=== PATIENT | female | born 1965 | race American Indian/Alaskan Native ===

== ENCOUNTER 2017-07-07 11:56 | Outpatient (CLI) | payer BC ==
--- NOTE | 2017-07-07 13:51 | Mammography Report ---
BILATERAL MAMMOGRAM with CAD: HISTORY: Cancer screening. Comparison study is dated June 28, 2016. FINDINGS: The breast tissue is heterogeneously dense, which could obscure detection of small masses (approximately 50%-75% glandular). No mass, distortion, suspicious calcification, or skin change is seen. IMPRESSION: Negative mammogram. There is no mammographic evidence of malignancy. RECOMMENDATION: Follow-up per ACS guidelines. BI-RADS CATEGORY: 1 = Negative ACR BI-RADS MAMMOGRAPHIC CODES: 0 = Needs additional imaging evaluation; 1 = Negative; 2 = Benign; 3 = Probably benign; 4 = Suspicious; 5 = Malignant; 6 = Known biopsy-proven malignancy COMMENT: 1. Dense breast tissue, i.e., adenosis, fibrocystic changes, etc., may obscure an underlying neoplasm. 2. Approximately 10% of cancers are not detected with mammography. 3. A negative mammography report should not delay biopsy if a clinically suspicious mass is present. COMMENT: Patient follow-up letters are generated in [facility].
== END 2017-07-07 11:57 | disposition home or self-care (01) ==
LOC: MAMMO 11:56
PROVIDERS: ATTEND Internal Medicine
DX: Z12.31 Encounter for screening mammogram for malignant neoplasm of breast (principal)
CPT/HCPCS: 77067; G0202

== ENCOUNTER 2018-01-02 19:30 | Emergency (ER) | payer BC ==
[2018-01-02 19:39] VITALS: BP 151/83
[2018-01-02] MEDS ORDERED: TORADOL IV ONE (20:28)
[2018-01-02] MEDS ORDERED: BENADRYL IV ONE (20:28)
[2018-01-02] MEDS ORDERED: REGLAN IV ONE (20:28)
--- NOTE | 2018-01-02 20:49 | Emergency Department Report ---
ED Headache HPI - General Chief Complaint: Neuro Symptoms/Deficit Stated Complaint: HEAD PAIN,RT SIDE NUMBNESS Time Seen by Provider: 01/02/18 20:06 Source: patient Exam Limitations: no limitations - History of Present Illness Initial Comments: 52-year-old female with no significant past medical history presents to the hospital complaining of right sided headache in the right arm paresthesia radiating to her entire hand since waking up this morning. Symptoms are constant. Headache described as throbbing and aching. Pain going down right- sided neck and trapezius worse with movement and palpation. Pain overall status 6/10 intensity. Positive nausea without vomiting, blurry vision, or focal weakness. Patient is right hand dominant denies any heavy lifting or trauma. Also denies history of migraines and hypertension. Patient states she has a cyst on her thyroid. Allergies/Adverse Reactions: Allergies shellfish derived Allergy (Severe, Verified 01/02/18 21:53) HIVES,FACIAL SWELLING Home Medications: Ambulatory Orders Ibuprofen [Motrin] 800 mg PO Q8HR PRN #30 tablet 01/02/18 Metaxalone [Skelaxin] 800 mg PO TID PRN #30 tablet 01/02/18 traMADol [Ultram 50 MG tab] 50 mg PO Q6HR PRN #20 tablet 01/02/18 ED Review of Systems ROS: Stated complaint: HEAD PAIN,RT SIDE NUMBNESS Other details as noted in HPI Comment: All other systems reviewed and negative ED Past Medical Hx - Past Medical History Hx Hypertension: No Hx CVA: No Hx Diabetes: No Hx Renal Disease: No Hx Arthritis: No Hx Headaches / Migraines: Yes Hx Seizures: No Hx Asthma: No Hx HIV: No - Surgical History Hx Pacemaker: No - Social History Smoking Status: Never Smoker Substance Use Type: None - Medications Home Medications: Home Medications Medication Instructions Recorded Confirmed Last Taken Type Ibuprofen [Motrin] 800 mg PO Q8HR PRN #30 tablet 01/02/18 Unknown Rx Metaxalone [Skelaxin] 800 mg PO TID PRN #30 tablet 01/02/18 Unknown Rx traMADol [Ultram 50 MG tab] 50 mg PO Q6HR PRN #20 tablet 01/02/18 Unknown Rx ED Physical Exam - General Limitations: No Limitations - Other Other exam information: General: No limitations, patient is alert in no acute distress Head exam: Atraumatic, normocephalic Eyes exam: Normal appearance, pupils equal reactive to light, extraocular movements intact ENT: Moist mucous membrane, normal oropharynx Neck exam: Normal inspection, full range of motion, no meningismus nontender Respiratory exam: Clear to auscultation bilateral, no wheezes, rales, crackles Cardiovascular: Normal rate and rhythm, normal heart sounds Abdomen: Soft, nondistended, and nontender, with normal bowel sounds, no rebound, or guarding Extremity: Full range of motion normal inspection no deformity Back: Normal Inspection, full range of motion, no tenderness Neurologic: Alert, oriented x3, cranial nerves intact, no motor or sensory deficit Psychiatric: normal affect, normal mood Skin: Warm, dry, intact ED Course Vital Signs 01/02/18 01/02/18 19:34 21:13 Temperature 98 F Pulse Rate 66 Respiratory 16 18 Rate Blood Pressure 151/83 O2 Sat by Pulse 98 Oximetry - Reevaluation(s) Reevaluation #1: 01/02/18 22:47 patient received Reglan, Benadryl, and Toradol with improvement in pain - Consultations Consultation #1: 01/02/18 22:47 case discussed with on-call orthopedic surgeon Dr. Lemus who agrees to have follow-up is appropriate given the CT findings ED Medical Decision Making - Lab Data Result diagrams: 01/02/18 20:38 01/02/18 20:38 Lab Results 01/02/18 01/02/18 01/02/18 Range/Units 20:38 20:38 20:38 WBC 4.8 (4.5-11.0) K/mm3 RBC 3.90 (3.65-5.03) M/mm3 Hgb 11.7 (10.1-14.3) gm/dl Hct 33.9 (30.3-42.9) % MCV 87 (79-97) fl MCH 30 (28-32) pg MCHC 35 H (30-34) % RDW 13.4 (13.2-15.2) % Plt Count 319 (140-440) K/mm3 Lymph % (Auto) 38.9 H (13.4-35.0) % [place] % (Auto) 5.0 (0.0-7.3) % Eos % (Auto) 2.5 (0.0-4.3) % Baso % (Auto) 0.8 (0.0-1.8) % Lymph # 1.9 (1.2-5.4) K/mm3 [place] # 0.2 (0.0-0.8) K/mm3 Eos # 0.1 (0.0-0.4) K/mm3 Baso # 0.0 (0.0-0.1) K/mm3 Seg Neutrophils % 52.8 (40.0-70.0) % Seg Neutrophils # 2.5 (1.8-7.7) K/mm3 Sodium 138 (137-145) mmol/L Potassium 4.4 (3.6-5.0) mmol/L Chloride 100.2 (98-107) mmol/L Carbon Dioxide 27 (22-30) mmol/L Anion Gap 15 mmol/L BUN 14 (7-17) mg/dL Creatinine 0.8 (0.7-1.2) mg/dL Estimated GFR > 60 ml/min BUN/Creatinine Ratio 18 % Glucose 103 H (65-100) mg/dL Calcium 9.2 (8.4-10.2) mg/dL Magnesium 2.00 (1.7-2.3) mg/dL TSH 3.940 (0.270-4.200) mlU/mL Free T4 1.00 (0.76-1.46) ng/dL - Radiology Data Radiology results: report reviewed read by radiology ct heaed: naf ct cervical spine FINDINGS: There is loss of cervical lordosis. Vertebral height is within normal limits. An acute fracture is not identified. Visualized lung apices are clear. Thyroid demonstrates normal density. Dsib-yh-jimzvvzs degree anterior osteophyte formation is noted from C3-4-C6-7. C1-2: No significant abnormality. C2-3: No significant abnormality. C3-4: No significant abnormality. C4-5: Mild degree right paracentral disc herniation is identified measuring about 0.8 x 0.4 centimeters in transverse and AP dimensions resulting in mild compromise of the spinal canal.. C5-6: Mild degree left neural foraminal stenosis is noted secondary to uncovertebral degenerative changes. There is mild degree broad-based disc osteophyte complex without significant spinal canal compromise.. C6-7: Mild degree broad-based disc osteophyte complex and bilateral uncovertebral degenerative changes are noted without significant spinal canal or neural foraminal compromise.. C7-T1: No significant abnormality. Other: No additional findings. IMPRESSION: Multilevel cervical spondylosis as described above Mild degree right paracentral disc herniation at C4-5. MRI is recommended. No acute fracture. - Medical Decision Making Patient had relief in the ED with medications. Patient's symptoms suggestive of radiculopathy with muscle spasm. CT cervical spine shows degenerative disc disease with mild herniation. Case discussed with neurology. Patient may follow up as an outpatient. - Differential Diagnosis radiculopathy, herniated disc, CVA, migraine Critical Care Time: No Critical care attestation.: If time is entered above; I have spent that time in minutes in the direct care of this critically ill patient, excluding procedure time. ED Disposition Clinical Impression: Radicular pain in right arm, Degenerative cervical disc, Cervical disc herniation, Headache Disposition: TO HOME OR SELFCARE Is pt being admited?: No Does the pt Need Aspirin: No Condition: Stable Instructions: Cervical Disc Herniation (ED), Cervical Radiculopathy (ED), Acute Headache (ED) Additional Instructions: Follow-up with the neurologist as orthopedic surgery provided for further management and treatment. You will need an outpatient MRI of your cervical spine /neck for further evaluation. Please return if symptoms worsen as indicated by your discharge instructions. Please note that Skelaxin and tramadol drowsiness therefore do not operate heavy machinery or drive while taking this medication Prescriptions: Ibuprofen [Motrin] 800 mg PO Q8HR PRN #30 tablet PRN Reason: Pain Metaxalone [Skelaxin] 800 mg PO TID PRN #30 tablet PRN Reason: Muscle Spasm traMADol [Ultram 50 MG tab] 50 mg PO Q6HR PRN #20 tablet PRN Reason: Pain Referrals: RODRIGO LEMUS MD [Staff Physician] - 3-5 Days (orthopedics) FAVIOLA GONZALEZ MD [Staff Physician] - 3-5 Days (Neurology) EFREN THOMAS MD [Primary Care Provider] - 3-5 Days MERLINE HYMAN MD [Staff Physician] - 3-5 Days (primary care doctor) Time of Disposition: 22:54 - Assessment Assessment Interval: Baseline - Level of Consciousness 1a. Level of Consciousness: alert - LOC Questions 1b. LOC Questions: answers correctly - LOC Command 1c. LOC Commands: performs no tasks correctly - Best Gaze 2. Best Gaze: normal - Visual 3. Visual: no visual loss - Facial Palsy 4. Facial Palsy: normal symmetrical movement - Motor Arm 5b. Motor Arm Right: no drift 5a. Motor Arm Left: no drift - Motor Leg 6a. Motor Leg Left: no drift 6b. Motor Leg Right: no drift - Limb Ataxia 7. Limb Ataxia: absent - Sensory 8. Sensory: mild/moderate sensory loss (left arm paresthesias but sensation intact) - Best Language 9. Best Language: no aphasia - Dysarthria 10. Dysarthria: normal - Extinction and Inattention 11. Extinction/Inattention: no abnormality - Scoring Total Score: 3 Stroke Severity: Minor Stroke
[2018-01-02 20:52] LABS: Basophils % (Auto) 0.8 % (0.0-1.8); Eosinophils # (Auto) 0.1 K/mm3 (0.0-0.4); Eosinophils % (Auto) 2.5 % (0.0-4.3); Hematocrit 33.9 % (30.3-42.9); Hemoglobin 11.7 gm/dl (10.1-14.3); Lymphocytes # (Auto) 1.9 K/mm3 (1.2-5.4); Lymphocytes % (Auto) 38.9 % (13.4-35.0); Mean Corpuscular HGB Conc 35 % (30-34); Mean Corpuscular Hemoglobin 30 pg (28-32); Mean Corpuscular Volume 87 fl (79-97); Monocytes # (Auto) 0.2 K/mm3 (0.0-0.8); Platelet Count 319 K/mm3 (140-440); Red Cell Distribution Width 13.4 % (13.2-15.2)
[2018-01-02 21:10] LABS: BUN/Creatinine Ratio 18; Blood Urea Nitrogen 14 mg/dL (7-17); Calcium 9.2 mg/dL (8.4-10.2); Hemolysis Index 160
--- NOTE | 2018-01-02 22:08 | Cat Scan Report ---
FINAL REPORT PROCEDURE: CT HEAD/BRAIN WO CON TECHNIQUE: Computerized tomography of the head was performed without contrast material. HISTORY: RIGHT BURNETT, R ARM PARESTHESIAS COMPARISON: No prior studies are available for comparison. FINDINGS: Skull and scalp: Normal. Paranasal sinuses: Normal. Ventricles and subarachnoid spaces: Normal. Cerebrum: No evidence of hemorrhage, acute infarction or mass . Cerebellum and brainstem: No evidence of hemorrhage, acute infarction or mass. Vasculature: Normal. Comments: None. IMPRESSION: Normal Examination
--- NOTE | 2018-01-02 22:23 | Cat Scan Report ---
FINAL REPORT PROCEDURE: CT CERVICAL SPINE WO CON TECHNIQUE: Computerized tomography of the cervical spine was performed from the skull base to T1 without contrast material. HISTORY: RIGHT BURNETT, R ARM PARESTHESIAS COMPARISON: No prior studies are available for comparison. FINDINGS: There is loss of cervical lordosis. Vertebral height is within normal limits. An acute fracture is not identified. Visualized lung apices are clear. Thyroid demonstrates normal density. Hhjg-ju-ifdxqqgo degree anterior osteophyte formation is noted from C3-4-C6-7. C1-2: No significant abnormality. C2-3: No significant abnormality. C3-4: No significant abnormality. C4-5: Mild degree right paracentral disc herniation is identified measuring about 0.8 x 0.4 centimeters in transverse and AP dimensions resulting in mild compromise of the spinal canal.. C5-6: Mild degree left neural foraminal stenosis is noted secondary to uncovertebral degenerative changes. There is mild degree broad-based disc osteophyte complex without significant spinal canal compromise.. C6-7: Mild degree broad-based disc osteophyte complex and bilateral uncovertebral degenerative changes are noted without significant spinal canal or neural foraminal compromise.. C7-T1: No significant abnormality. Other: No additional findings. IMPRESSION: Multilevel cervical spondylosis as described above Mild degree right paracentral disc herniation at C4-5. MRI is recommended. No acute fracture.
== END 2018-01-02 23:18 | disposition home or self-care (01) ==
LOC: ED 19:30
DX: M50.221 Other cervical disc displacement at C4-C5 level (principal); M79.601 Pain in right arm; G43.909 Migraine, unspecified, not intractable, without status migrainosus; E04.1 Nontoxic single thyroid nodule; Z91.013 Allergy to seafood
CPT/HCPCS: 36415; 70450; 72125; 80048; 83735; 84439; 84443; 85025; 96374; 96375; 99284; J1200; J1885; J2765

== ENCOUNTER 2018-01-28 17:07 | Outpatient (CLI) | payer BC ==
--- NOTE | 2018-01-28 23:00 | XRay Report ---
FINAL REPORT PROCEDURE: XR SPINE CERVICAL 4-5V TECHNIQUE: Cervical spine radiographs, minimum of four views, including AP, lateral, both oblique, and open-mouth odontoid projections. HISTORY: Radiculopathy COMPARISON: No prior studies are available for comparison. FINDINGS: Prevertebral soft tissues: Normal. Alignment: There is straightening of cervical spine. Motion: Physiologic Vertebral body heights/Disk spaces: Narrowing of intervertebral disc space is noted from C3-4 to C6-7. Mild degree posterior osteophyte formation is noted at C5-6. Fracture(s): None. Neural foramina: Normal. Facets: Normal. Bone mineralization: Normal. IMPRESSION: Multilevel cervical spondylosis most marked at C5-6. Straightening of the cervical spine is most likely secondary to spasm.
== END 2018-01-28 17:08 | disposition home or self-care (01) ==
LOC: XRAY 17:07
PROVIDERS: ATTEND Orthopaedic Surgery
DX: M54.12 Radiculopathy, cervical region (principal); M25.78 Osteophyte, vertebrae
CPT/HCPCS: 72050

== ENCOUNTER 2018-03-10 16:44 | Outpatient (CLI) | payer BC ==
--- NOTE | 2018-03-11 00:36 | Ultrasound Report ---
FINAL REPORT EXAM: US TRANSVAGINAL HISTORY: PELVIC PAIN TECHNIQUE: Transvaginal imaging was obtained of the pelvis. FINDINGS: The uterus has been removed. The left ovary is normal size contour and echotexture measuring 1.6 cm x 1.6 cm x 1.7 cm. The right ovary measures 2.6 cm x 1.7 cm x 2.8 cm. There are 2 small functional cyst the right ovary the larger measuring to 2 cm in diameter. Free fluid is not seen. IMPRESSION: Hysterectomy. Small functional cysts in the right ovary measuring up to 2 cm in diameter. No evidence of free fluid or adnexal masses.
--- NOTE | 2018-03-11 00:37 | Ultrasound Report ---
FINAL REPORT EXAM: US PELVIC COMPLETE HISTORY: PELVIC PAIN TECHNIQUE: Transabdominal imaging was obtained of the pelvis. FINDINGS: The uterus has been removed. The left ovary is normal size contour and echotexture measuring 1.6 cm x 1.6 cm x 1.7 cm. The right ovary measures 2.6 cm x 1.7 cm x 2.8 cm. Within the right ovary are 2 functional cysts the larger measuring up to 2 cm in diameter. Free fluid is not seen. IMPRESSION: Hysterectomy. Small functional cysst in the right ovary measuring up to 2 cm in diameter. No evidence of free fluid or adnexal masses.
== END 2018-03-10 16:45 | disposition home or self-care (01) ==
LOC: US 16:44
PROVIDERS: ATTEND Internal Medicine
DX: N83.201 Unspecified ovarian cyst, right side (principal); E03.9 Hypothyroidism, unspecified; Z90.710 Acquired absence of both cervix and uterus; M19.90 Unspecified osteoarthritis, unspecified site
CPT/HCPCS: 76830; 76856

== ENCOUNTER 2018-03-17 16:43 | Outpatient (CLI) | payer BC | END 2018-03-17 16:44 | disposition home or self-care (01) | LOC: LAB 16:43 | PROVIDERS: ATTEND Internal Medicine | DX: R79.89 Other specified abnormal findings of blood chemistry (principal); E03.9 Hypothyroidism, unspecified; M19.90 Unspecified osteoarthritis, unspecified site; Z91.013 Allergy to seafood; Z90.710 Acquired absence of both cervix and uterus | CPT/HCPCS: 36415; 84439; 84481 ==

== ENCOUNTER 2018-11-13 10:27 | Outpatient (CLI) | payer BC ==
--- NOTE | 2018-11-15 02:05 | Vascular Lab Report ---
PROCEDURE: VL VENOUS DUPLEX LE BILAT TECHNIQUE: Ultrasound evaluation of the deep venous structures of the lower entities including varic ose veins HISTORY: VARICOSE VEINS OF BILAT LOWER EXTREMITIES COMPARISONS: None FINDINGS: There is no evidence of deep venous or superficial venous thrombus in the lower extremities. During t he examination there is deep venous reflux noted in the right and left common femoral veins and popli teal veins. There is superficial venous reflux noted in the right superficial femoral vein and greate r saphenous vein. There is reflux identified in the left superficial femoral vein. No reflux noted in the left anterior ankle region or in the posterior thigh region where the patient has symptomatology. IMPRESSION: There is no evidence of deep venous or superficial venous thrombus in the lower extremities. Evaluati on for reflux and varicosity as discussed. This document is electronically signed by Ericka Mckinney DO., November 15 2018 02:03:27 AM ET
== END 2018-11-13 10:28 | disposition home or self-care (01) ==
LOC: VAS 10:27
PROVIDERS: ATTEND Surgery Vascular Surgery
DX: I83.813 Varicose veins of bilateral lower extremities with pain (principal); E03.9 Hypothyroidism, unspecified; M19.90 Unspecified osteoarthritis, unspecified site; Z90.710 Acquired absence of both cervix and uterus
CPT/HCPCS: 93970

== ENCOUNTER 2019-03-02 10:03 | Outpatient (CLI) | payer BC ==
[2019-03-02 10:39] LABS: Basophils % (Auto) 1.1 % (0.0-1.8); Eosinophils # (Auto) 0.1 K/mm3 (0.0-0.4); Eosinophils % (Auto) 1.4 % (0.0-4.3); Hematocrit 34.1 % (30.3-42.9); Hemoglobin 11.5 gm/dl (10.1-14.3); Lymphocytes # (Auto) 1.3 K/mm3 (1.2-5.4); Lymphocytes % (Auto) 36.1 % (13.4-35.0); Mean Corpuscular HGB Conc 34 % (30-34); Mean Corpuscular Volume 89 fl (79-97); Monocytes # (Auto) 0.2 K/mm3 (0.0-0.8); Monocytes % (Auto) 5.8 % (0.0-7.3); Platelet Count 253 K/mm3 (140-440); Red Blood Count 3.83 M/mm3 (3.65-5.03); Red Cell Distribution Width 13.1 % (13.2-15.2)
[2019-03-02 11:06] LABS: Alanine Aminotransferase 9 units/L (7-56); BUN/Creatinine Ratio 13; Blood Urea Nitrogen 10 mg/dL (7-17); Hemolysis Index 11; LDL Cholesterol,Direct 104 mg/dL (50-130)
[2019-03-02 11:18] LABS: Chol/HDL Ratio 3.67 %; HDL Cholesterol 43 mg/dL (40-59)
[2019-03-04 14:21] LABS: Vitamin D, 25-OH, D2 <4 ng/mL
== END 2019-03-02 10:04 | disposition home or self-care (01) ==
LOC: LAB 10:03
PROVIDERS: ATTEND Internal Medicine
DX: E03.9 Hypothyroidism, unspecified (principal); Z90.710 Acquired absence of both cervix and uterus
CPT/HCPCS: 36415; 80053; 80061; 82306; 84439; 84443; 84480; 85025; 87086; 88112

== ENCOUNTER 2019-05-05 15:50 | Outpatient (CLI) | payer BC ==
--- NOTE | 2019-05-05 17:11 | XRay Report ---
BILATERAL FOOT 6 VIEW(S) INDICATION / CLINICAL INFORMATION: M79.89) specified soft tissue disorders. Bilateral heel pain COMPARISON: None available. FINDINGS: BONES / JOINT(S): No acute fracture or subluxation of either foot. No significant arthritis. Small ac cessory medial navicular ossicle on the left. Small bilateral plantar calcaneal heel spurs. SOFT TISSUES: Mild diffuse soft tissue swelling of both feet. ADDITIONAL FINDINGS: None. Signer Name: Cinthya Fernandes MD Signed: 05/05/2019 5:06 PM Workstation Name: [id number]
== END 2019-05-05 15:51 | disposition home or self-care (01) ==
LOC: XRAY 15:50
PROVIDERS: ATTEND Podiatrist Foot & Ankle Surgery
DX: M79.89 Other specified soft tissue disorders (principal); E03.9 Hypothyroidism, unspecified

== ENCOUNTER 2019-06-28 10:29 | Outpatient (CLI) | payer BC ==
[2019-06-28 13:22] LABS: Free T4 (Free Thyroxine) 1.29 ng/dL (0.76-1.46)
== END 2019-06-28 10:30 | disposition home or self-care (01) ==
LOC: LAB 10:29
PROVIDERS: ATTEND Internal Medicine
DX: E03.9 Hypothyroidism, unspecified (principal); Z90.710 Acquired absence of both cervix and uterus; M19.90 Unspecified osteoarthritis, unspecified site
CPT/HCPCS: 36415; 84439; 84443

== ENCOUNTER 2019-07-30 12:19 | Outpatient (CLI) | payer BC ==
--- NOTE | 2019-08-02 15:12 | Mammography Report ---
DIGITAL SCREENING MAMMOGRAM WITH CAD, 07/30/2019 INDICATION: Routine screening mammography. TECHNIQUE: Digital bilateral 2D mammography was obtained in the craniocaudal and mediolateral obliq ue projections. This examination was interpreted with the benefit of Computer-Aided Detection analysi s. COMPARISON: 07/08/2018 and 06/28/2016 FINDINGS: Breast Density: The breasts are heterogeneously dense, which may obscure small masses. A right asymmetry on the MLO view requires additional imaging. No architectural distortion or suspici ous calcifications of the right breast. There is no evidence of dominant mass, suspicious calcificati ons or architectural distortion in the left breast. IMPRESSION: Right asymmetry requiring additional imaging. Recommend recall for right spot compression MLO view and right breast ultrasound if needed. Follow up recommendation: Routine yearly Category 0: Incomplete. Needs additional imaging evaluation and/or prior mammograms for comparison. A "normal" or negative report should not discourage follow up or biopsy of a clinically significant f inding. A written summary of these findings will be mailed to the patient. The patient will be entered into a mammography reporting system which will generate a reminder letter for the patient's next appointmen t at the appropriate interval. The [employer] recommends yearly mammograms starting at age 40 and continuing as l dayan as a woman is in good health. Breast MRI is recommended for women with an approximate 20-25% or greater lifetime risk of breast cancer, including women with a strong family history of breast or ova phill cancer or who have been treated for Hodgkin's disease. Signer Name: Yassine Cedillo MD Signed: 08/02/2019 3:08 PM Workstation Name: [id number]
== END 2019-07-30 12:20 | disposition home or self-care (01) ==
LOC: MAMMO 12:19
PROVIDERS: ATTEND Internal Medicine
DX: Z12.31 Encounter for screening mammogram for malignant neoplasm of breast (principal); Z91.013 Allergy to seafood
CPT/HCPCS: 77067

== ENCOUNTER 2019-08-31 09:34 | Outpatient (CLI) | payer BC ==
--- NOTE | 2019-08-31 15:04 | Mammography Report ---
RIGHT DIGITAL DIAGNOSTIC MAMMOGRAM WITH CAD 08/31/2019 RIGHT LIMITED BREAST ULTRASOUND INDICATION: Recall to evaluate a mammographic asymmetry. R92.8 TECHNIQUE: Digital right mammographic imaging was performed. Spot compression views were obtained. L imited ultrasound was performed. This examination was interpreted with the benefit of Computer-Aided Detection (CAD) analysis. COMPARISON: 07/30/2019 FINDINGS: Breast Density: The breasts are heterogeneously dense, which may obscure small masses. MAMMOGRAPHIC FINDINGS: Satisfactory effacement of asymmetry on a spot compression MLO view. However, a partially circumscribed density remains on a lateral view. ULTRASOUND FINDINGS: Targeted ultrasound evaluation was performed of the area of interest. Ultrasou nd of the upper right breast was performed and demonstrated no mass or cyst to correlate with the jj mographic finding. IMPRESSION: A probably benign right mammographic asymmetry identified only on one view with a negativ e ultrasound. Follow up recommendation: Short term follow up in 6 months. BI-RADS Category 3: Probably Benign. Followup in 6 months. A "normal" or negative report should not discourage follow up or biopsy of a clinically significant f inding. A written summary of these findings will be mailed to the patient. The patient will be entered into a mammography reporting system which will generate a reminder letter for the patient's next appointmen t at the appropriate interval. According to the [employer], yearly mammograms are recommended starting at age 40 and continuing as long as a woman is in good health. Breast MRI is recommended for women with an wild roximately 20-25% or greater lifetime risk of breast cancer, including women with a strong family his tory of breast or ovarian cancer and women who have been treated for Hodgkin's disease. Signer Name: Yassine Cedillo MD Signed: 08/31/2019 3:00 PM Workstation Name: [id number]
== END 2019-08-31 09:35 | disposition home or self-care (01) ==
LOC: MAMMO 09:34
PROVIDERS: ATTEND Internal Medicine
DX: R92.8 Other abnormal and inconclusive findings on diagnostic imaging of breast (principal); N64.89 Other specified disorders of breast

== ENCOUNTER 2019-10-27 12:32 | Outpatient (CLI) | payer BC ==
[2019-10-27 14:30] LABS: Basophils # (Auto) 0.1 K/mm3 (0.0-0.1); Basophils % (Auto) 1.2 % (0.0-1.8); Eosinophils # (Auto) 0.1 K/mm3 (0.0-0.4); Eosinophils % (Auto) 0.9 % (0.0-4.3); Hematocrit 37.5 % (30.3-42.9); Hemoglobin 12.6 gm/dl (10.1-14.3); Lymphocytes # (Auto) 1.8 K/mm3 (1.2-5.4); Lymphocytes % (Auto) 31.9 % (13.4-35.0); Mean Corpuscular HGB Conc 34 % (30-34); Mean Corpuscular Volume 88 fl (79-97); Monocytes # (Auto) 0.3 K/mm3 (0.0-0.8); Monocytes % (Auto) 5.1 % (0.0-7.3); Platelet Count 331 K/mm3 (140-440); Red Blood Count 4.27 M/mm3 (3.65-5.03); Red Cell Distribution Width 13.3 % (13.2-15.2)
[2019-10-27 14:56] LABS: Alanine Aminotransferase 13 units/L (7-56); Albumin 4.6 g/dL (3.9-5); BUN/Creatinine Ratio 14; Blood Urea Nitrogen 11 mg/dL (7-17); Calcium 9.3 mg/dL (8.4-10.2); Hemolysis Index 1
[2019-10-27 16:18] LABS: Free T4 (Free Thyroxine) 1.37 ng/dL (0.76-1.46)
== END 2019-10-27 12:33 | disposition home or self-care (01) ==
LOC: LAB 12:32
PROVIDERS: ATTEND Internal Medicine
DX: R42 Dizziness and giddiness (principal); E03.9 Hypothyroidism, unspecified
CPT/HCPCS: 36415; 80053; 84439; 84443; 85025

== ENCOUNTER 2020-01-19 11:03 | Outpatient (CLI) | payer BC ==
[2020-01-19 11:32] LABS: Basophils % (Auto) 0.6 % (0.0-1.8); Eosinophils # (Auto) 0.1 K/mm3 (0.0-0.4); Eosinophils % (Auto) 1.3 % (0.0-4.3); Hematocrit 35.7 % (30.3-42.9); Hemoglobin 12.2 gm/dl (10.1-14.3); Lymphocytes # (Auto) 1.5 K/mm3 (1.2-5.4); Lymphocytes % (Auto) 32.4 % (13.4-35.0); Mean Corpuscular HGB Conc 34 % (30-34); Mean Corpuscular Volume 88 fl (79-97); Monocytes # (Auto) 0.3 K/mm3 (0.0-0.8); Monocytes % (Auto) 5.5 % (0.0-7.3); Platelet Count 267 K/mm3 (140-440); Red Blood Count 4.05 M/mm3 (3.65-5.03); Red Cell Distribution Width 13.2 % (13.2-15.2)
[2020-01-19 11:53] LABS: Alanine Aminotransferase 11 units/L (7-56); Albumin 4.4 g/dL (3.9-5); BUN/Creatinine Ratio 9; Blood Urea Nitrogen 8 mg/dL (7-17); Calcium 9.6 mg/dL (8.4-10.2); Hemolysis Index 5; LDL Cholesterol,Direct 113 mg/dL (50-130)
[2020-01-19 12:13] LABS: Hepatitis B Surface Antigen Non-Reactive (Negative); Hepatitis C Virus Antibody Non-Reactive (NonReactive)
[2020-01-19 12:28] LABS: Chol/HDL Ratio 3.77 %; HDL Cholesterol 48 mg/dL (40-59)
[2020-01-23 13:18] LABS: Vitamin D, 25-OH, D2 <4 ng/mL
== END 2020-01-19 11:04 | disposition home or self-care (01) ==
LOC: LAB 11:03
PROVIDERS: ATTEND Advanced Practice Midwife
DX: Z01.419 Encounter for gynecological examination (general) (routine) without abnormal findings (principal)
CPT/HCPCS: 36415; 80053; 80061; 80074; 82306; 84443; 85025; 86592; 86689

== ENCOUNTER 2020-03-15 09:04 | Outpatient (CLI) | payer BC ==
--- NOTE | 2020-03-15 10:08 | Ultrasound Report ---
ULTRASOUND PELVIC COMPLETE ULTRASOUND TRANSVAGINAL HISTORY: Pelvic and perineal pain TECHNIQUE: Transabdominal and transvaginal imaging. Color Doppler interrogation. COMPARISON: 03/10/2018. FINDINGS: The uterus and ovaries are not visualized. Images through the bladder are unremarkable. No pelvic flu id collection, cyst or mass is detected. IMPRESSION: Hysterectomy. No abnormality identified. Signer Name: Bret Miller Jr, MD Signed: 03/15/2020 10:04 AM Workstation Name: [id number]
== END 2020-03-15 09:05 | disposition home or self-care (01) ==
LOC: SPVWC 09:04
PROVIDERS: ATTEND Advanced Practice Midwife
DX: R10.2 Pelvic and perineal pain (principal); Z90.710 Acquired absence of both cervix and uterus
CPT/HCPCS: 76830; 76856